=== PATIENT | female | born 1960 | race African-American/Black ===

== ENCOUNTER 2018-02-08 00:42 | Emergency (ER) | payer OTHER, MEDICARE ==
[~2018-02-08] VITALS: Ht 154.9 cm; Wt 104.3 kg
[~2018-02-08 00:42] MED LIST: ALLERGY RELIEF10 M3 PO; ASPIRIN EC81 M1 PO; CIPROFLOXACIN500 M1 PO; FLAGYL500 M1 PO; FLAGYL500 MG PO; IBUPROFEN 800800 M1 PO; LIPITOR10 MG PO; NORCO 5-325 TA1 EACH PO; NORFLEX100 MG PO; NORVASC10 MG PO; PHENERGAN 25 MG25 M1 PO; PREMPRO 0.625-1 EACH PO; PRILOSEC 20 MG20 MG PO; TOPAMAX25 M1 PO; TRAMADOL 50 MG50 MG PO; VENTOLIN HFA 1818 GM INH; ZOFRAN ODT4 MG PO; ZYRTEC
[2018-02-08 01:00] LABS: URINE BILIRUBIN NEGATIVE (Negative); URINE BLOOD NEGATIVE (Negative); URINE CLARITY CLEAR; URINE COLOR YELLOW; URINE GLUCOSE-RANDOM* NEGATIVE (Negative); URINE KETONES NEGATIVE (Negative); URINE LEUKOCYTES-REFLEX NEGATIVE (Negative); URINE NITRITE-REFLEX NEGATIVE (Negative); URINE PROTEIN (DIPSTICK) TRACE (Negative); URINE SPECIFIC GRAVITY 1.015 (1.005-1.035); URINE UROBILINOGEN 0.2 E.U./dl (0.2-1.0)
[2018-02-08 01:13] LABS: ABSOLUTE NEUTROPHILS 8.8 thou/uL (1.4-8.2); EOSINOPHILS 0.4 % (0.0-3.0); HEMATOCRIT 45.2 % (37.0-47.0); HEMOGLOBIN 15.6 gm/dL (12.0-15.0); LYMPHOCYTES 12.9 % (24.0-44.0); MCH 29.8 pg (26.0-34.0); MCHC 34.4 g/dL (28.0-37.0); MCV 86.4 fL (80.0-100.0); MONOCYTES 5.9 % (1.0-8.0); PLATELET COUNT 198 thou/uL (150-400); POLYS 79.8 % (36.0-66.0); RBC 5.23 mil/uL (4.20-5.00); RDW 13.6 % (10.5-14.5); WBC 11.1 thou/uL (4.0-11.0)
[2018-02-08 01:21] LABS: CALCIUM 9.6 mg/dL (8.5-10.1); CREATININE 0.7 mg/dL (0.6-1.0)
[2018-02-08 01:26] LABS: ALBUMIN 4.4 g/dL (3.4-5.0); TOTAL BILIRUBIN 0.3 mg/dL (<0.1-1.0); TOTAL PROTEIN 9.2 g/dL (6.4-8.2)
[2018-02-08] MEDS ORDERED: CIPROFLOXACIN500 M1 PO (03:41)
[2018-02-08] MEDS ORDERED: FLAGYL500 MG PO (03:41)
[2018-02-09] MEDS ORDERED: CIPROFLOXACIN500 M1 PO (11:48)
[2018-02-09] MEDS ORDERED: FLAGYL500 MG PO (11:48)
== END 2018-02-08 03:58 | disposition home or self-care (01) ==
LOC: ER 00:42
PROVIDERS: Emergency Medicine
DX: K52.9 Noninfective gastroenteritis and colitis, unspecified (principal); I10 Essential (primary) hypertension; Z77.22 Contact with and (suspected) exposure to environmental tobacco smoke (acute) (chronic)

== ENCOUNTER 2018-02-08 09:11 | Inpatient (IN) | payer OTHER, MEDICARE ==
[~2018-02-08] VITALS: Ht 152.4 cm; Wt 83.0 kg
--- NOTE | ~2018-02-08 | EKG ---
[address] [address] ELECTROCARDIOGRAM REPORT Name: MORELIA BAZZI Room #: 457- ADM IN M.R.#: [id number] Admission: 02/08/18 Attend Phys: Arcadio Robison MD Discharge: Date of : 62 Report #: [id number] THIS REPORT FOR: //name// [facility] Test Date: 2018-02-08 Test Time: 11:50:03 Pat Name: MORELIA BAZZI Department: Room: [facility] Gender: F [employer] Professor: ANJEL : 1960 Requested By: Shonda Hunt Order Number: [id number] MD: Marivn Omer Measurements Intervals Anita Rate: 70 P: 56 CA: 183 QRS: 18 QRSD: 93 T: 4 QT: 452 QTc: 488 Interpretive Statements Sinus rhythm Nonspecific T abnormalities, anterior leads Borderline prolonged QT interval Baseline wander in lead(s) II,III,aVF Compared to ECG 06/13/2015 12:33:48 T-wave abnormality now present Electronically Signed On 02-08-2018 15:38:36 CDT by Marvin Omer [email or web address] <ELECTRONICALLY SIGNED> By: Marvin Omer MD, [facility] 02/08/18 1538 1150 1150 Marvin Omer MD, [facility] /EPI
[2018-02-08 09:42] VITALS: BP 149/63
[2018-02-08 09:53] LABS: CREATININE 0.7 mg/dL (0.6-1.0); POTASSIUM 3.1 mmol/L (3.5-5.1)
[2018-02-08 10:06] VITALS: BP 158/60
[2018-02-08 11:09] VITALS: BP 158/60
[2018-02-08 11:56] LABS: MAGNESIUM 1.9 mg/dL (1.8-2.4); TROPONIN-I < 0.04 ng/mL (<0.06)
[2018-02-08 16:00] VITALS: BP 130/61
[2018-02-08 19:54] VITALS: BP 122/52
[2018-02-09 02:09] LABS: GLYCOHEMOGLOBIN (HGB A1C) 5.8 % (4.8-5.6)
[2018-02-09 05:54] LABS: ABSOLUTE NEUTROPHILS 5.3 thou/uL (1.4-8.2); BASOPHILS 0.4 % (0.0-2.0); EOSINOPHILS 0.3 % (0.0-3.0); HEMATOCRIT 41.1 % (37.0-47.0); HEMOGLOBIN 13.8 gm/dL (12.0-15.0); LYMPHOCYTES 23.2 % (24.0-44.0); MCH 29.3 pg (26.0-34.0); MCHC 33.6 g/dL (28.0-37.0); MCV 87.2 fL (80.0-100.0); MONOCYTES 10.9 % (1.0-8.0); PLATELET COUNT 182 thou/uL (150-400); POLYS 65.2 % (36.0-66.0); RBC 4.71 mil/uL (4.20-5.00); RDW 13.9 % (10.5-14.5); WBC 8.1 thou/uL (4.0-11.0)
[2018-02-09 06:01] LABS: CALCIUM 9.6 mg/dL (8.5-10.1); CREATININE 0.8 mg/dL (0.6-1.0); POTASSIUM 3.4 mmol/L (3.5-5.1)
[2018-02-09 08:00] VITALS: BP 131/69
[2018-02-09] MEDS ORDERED: CIPROFLOXACIN500 M1 PO (11:48)
[2018-02-09] MEDS ORDERED: FLAGYL500 MG PO (11:48)
[2018-02-09 12:25] VITALS: BP 131/69
== END 2018-02-09 12:53 | disposition home or self-care (01) | DRG 392 ==
LOC: ER 09:11 → 4W 10:08 → EROBS 10:08 → 4W 10:59 → ENTRNSPT 02-09 12:48 → EDTRNSPTSTS 02-09 12:50 → 4W 02-09 12:53
PROVIDERS: Emergency Medicine; Hospitalist; Nurse Practitioner
DX: K52.9 Noninfective gastroenteritis and colitis, unspecified (principal); E87.6 Hypokalemia; I10 Essential (primary) hypertension; Z77.22 Contact with and (suspected) exposure to environmental tobacco smoke (acute) (chronic); Z87.891 Personal history of nicotine dependence; Z79.82 Long term (current) use of aspirin; Z79.899 Other long term (current) drug therapy
CPT/HCPCS: 10040